=== PATIENT | male | born 1960 | race Caucasian/White ===

== ENCOUNTER 2024-05-21 19:19 | Emergency (ER) | payer SELFPAY ==
[2024-05-21] VITALS (7 sets, daily range): BP systolic 122–155; BP diastolic 73–96; PULSE 53–68; RESP 16; TEMP 36.5; O2SAT 97–100; BMI 25.8
--- NOTE | 2024-05-21 19:34 | ED_ITS ---
HPI - Animal Bite 2 General: Chief Complaint: Animal Bite Stated Complaint: Snake bite Time Seen by Provider: 05/21/24 19:27 Source: patient Mode of arrival: ambulatory Limitations: no limitations History of Present Illness: 63-year-old male states he is bit on his right hand by a copperhead roughly an hour ago is over his right second knuckle he denies any pain currently is minimal swelling. His last tetanus was 1 month ago denies any other injuries Associated symptoms: Deny chills or fever(s) Related Data Allergies Allergy/AdvReac Type Severity Reaction Status Date / Time No Known Allergies Allergy Verified 05/21/24 19:27 Review of Systems 2 Const: Denies: fever(s) or chills ENMT: Denies: throat pain or dental pain Card: Denies: chest pain Resp: Denies: dyspnea GI: Denies: abdominal pain, nausea, vomiting or diarrhea Musc: Denies: neck pain or back pain Skin/Breast: Denies: rash Physical Exam 2 Const: COMMON NORMALS: no acute distress, patient oriented x3 and healthy appearing HENMT: COMMON NORMALS: normocephalic and atraumatic HEAD & SCALP: n ormocephalic and atraumatic Neck/C-Spine: COMMON NORMALS: full ROM and supple Chest: COMMONS NORMALS: normal inspection of the chest Resp: COMMON NORMALS: normal respiratory effort Extremity: COMMON NORMALS: full ROM NARRATIVE EXTREMITY EXAM: Puncture wound noted over right dorsum hand at the second knuckle minimal swelling at this time Neuro: COMMON NORMALS: patient oriented x3, moves all extremities and no focal motor deficits Psych: COMMON NORMALS: mental status grossly normal, Normal thought process present and cooperative THOUGHT PROCESS: Normal thought process present Skin: COMMON NORMALS: no rashes or lesions noted and no wounds GENERAL SKIN EXAM: no rashes or lesions noted Course 2 Vital Signs: Vital signs: Vital Signs Temperature 97.7 F 05/21/24 19:25 Pulse Rate 68 05/21/24 19:25 Respiratory Rate 16 05/21/24 19:25 Blood Pressure 155/96 05/21/24 19:25 Pulse Oximetry 98 05/21/24 19:25 Oxygen Delivery Me thod Room Air 05/21/24 19:25 MDM - Animal Bite Medical Decision Making Patient presents here with a snake bite he has had no further swelling in his hand no pain at this time he is wanting go home I feel he stable for discharge she is to rest follow-up with PCP return if worsening understands agrees to plan Medical Records I reviewed the patient's medical records. Lab Data I reviewed the patient's lab results. 05/21/24 19:45 05/21/24 19:45 Laboratory Results WBC 4.23 10^3/uL (3.29-11.43) 05/21/24 19:45 RBC 4.71 10^6/uL (3.85-5.65) 05/21/24 19:45 Hgb 14.00 g/dL (11.27-16.99) 05/21/24 19:45 Hct 41.0 % (37-53) 05/21/24 19:45 MCV 87.0 fl (82-101) 05/21/24 19:45 MCH 29.7 pg (27-33) 05/21/24 19:45 MCHC 34.1 g/dL (30-55) 05/21/24 19:45 RDW 12.8 % (12.1-15.1) 05/21/24 19:45 Plt Count 193 10^3/cmm (157-399) 05/21/24 19:45 MPV 9.4 fL (7.4-10.4) 05/21/24 19:45 Neut % (Auto) 64.5 % 05/21/24 19:45 Lymph % (Auto) 25.1 % 05/21/24 19:45 [place] % (Auto) 7.6 % 05/21/24 19:45 Eos % (Auto) 2.1 % 05/21/24 19:45 Baso % (Auto) 0.5 % 05/21/24 19:45 Neut # (Auto) 2.73 10^3/uL (1.8-7.7) 05/21/24 19:45 Lymph # (Auto) 1.1 10^3/uL (0.8-4.8) 05/21/24 19:45 [place] # (Auto) 0.3 10^3/uL (0.2-0.9) 05/21/24 19:45 Eos # (Auto) 0.1 10^3/uL (0.0-0.8) 05/21/24 19:45 Baso # (Auto) 0.0 10^3/uL (0.0-0.1) 05/21/24 19:45 Nucleated RBC % (auto) 0 % 05/21/24 19:45 Nucleated RBCs # 0.0 /100WBC 05/21/24 19:45 PT 12.80 SECONDS (12.1-14.9) 05/21/24 19:45 INR 0.94 (0.8-1.2) 05/21/24 19:45 Sodium 144 mmol/L (136-145) 05/21/24 19:45 Potassium 4.6 mmol/L (3.5-5.1) 05/21/24 19:45 Chloride 108 mmol/L (98-107) H 05/21/24 19:45 Carbon Dioxide 25 mmol/L (22-29) 05/21/24 19:45 Anion Gap 15.6 (5-19) 05/21/24 19:45 BUN 9 mg/dL (8-23) 05/21/24 19:45 Creatinine 0.8 mg/dL (0.7-1.2) 05/21/24 19:45 GFR Calculation 97.6 mL/min (90-130) 05/21/24 19:45 Glucose 103 mg/dL (65-115) 05/21/24 19:45 Calculated Osmolality 297 mOsm/kg (285-295) H 05/21/24 19:45 Calcium 9.2 mg/dL (8.5-10.5) 05/21/24 19:45 Total Bilirubin 0.3 mg/dL (0.15-1.2) 05/21/24 19:45 AST 18 U/L (0-40) 05/21/24 19:45 ALT 11 U/L (0-41) 05/21/24 19:45 Alkaline Phosphatase 73 U/L (40-130) 05/21/24 19:45 Total Protein 7.2 g/dL (6.6-8.7) 05/21/24 19:45 Albumin 4.4 g/dL (3.5-5.2) 05/21/24 19:45 Globulin 2.8 g/dL (1.3-4.6) 05/21/24 19:45 No radiology studies performed this visit Discharge Plan Discharge Patient Disposition: Home Clinical Impression: Snake bite Condition: Stable Discharge Orders: Discharge ED (Routine); Ordered 05/21/24 Ordered By: Vicky Fenton Discharge Diet: Advance as tolerated Discharge Activity: Resume usual activity Patient Instructions: Snake Bite (ED) Coding Level of Care Code ED Retail Assistant for Jennifer Huff
[2024-05-21 19:52] LABS: Basophils % 0.5 %; Eosinophils # 0.1 10^3/uL (0.0-0.8); Eosinophils % 2.1 %; Lymphocytes # 1.1 10^3/uL (0.8-4.8); Lymphocytes % 25.1 %; Mean Corpuscular HGB Conc 34.1 g/dL (30-55); Mean Corpuscular Hemoglobin 29.7 pg (27-33); Mean Platelet Volume 9.4 fL (7.4-10.4); Monocytes # 0.3 10^3/uL (0.2-0.9); Monocytes % 7.6 %; Neutrophils # 2.73 10^3/uL (1.8-7.7); Neutrophils % 64.5 %; Nucleated Red Blood Cells % 0 %; Platelet Count 193 10^3/cmm (157-399); Red Blood Count 4.71 10^6/uL (3.85-5.65); Red Cell Distribution Width 12.8 % (12.1-15.1); White Blood Count 4.23 10^3/uL (3.29-11.43)
[2024-05-21 20:05] LABS: INR 0.94 (0.8-1.2)
[2024-05-21 20:10] LABS: Alanine Aminotransferase 11 U/L (0-41); Albumin Level 4.4 g/dL (3.5-5.2); Alkaline Phosphatase 73 U/L (40-130); Anion Gap 15.6 (5-19); Aspartate Amino Transferase 18 U/L (0-40); Blood Urea Nitrogen 9 mg/dL (8-23); Calcium 9.2 mg/dL (8.5-10.5); Carbon Dioxide 25 mmol/L (22-29); Chloride 108 mmol/L (98-107); Creatinine Clr Calc Pharmacy 96.0955; Globulin 2.8 g/dL (1.3-4.6); Glomerular Filtration Rate 97.6 mL/min (90-130); Glucose 103 mg/dL (65-115); Osmolality Calculated 297 mOsm/kg (285-295); Potassium 4.6 mmol/L (3.5-5.1); Sodium 144 mmol/L (136-145); Total Bilirubin 0.3 mg/dL (0.15-1.2); Total Protein 7.2 g/dL (6.6-8.7)
--- NOTE | 2024-05-21 20:49 | PC.NURSE ---
PT SITTING IN CHAIR, VISITOR IN ROOM, PT DENIES NEEDS AT THIS TIME. SWELLING INCREASED INTO WRIST. NO ACUTE DISTRESS NOTED.
== END 2024-05-21 22:41 | disposition home or self-care (01) ==
PROVIDERS: Emergency Provider Emergency Medicine
DX: T63.091A Toxic effect of venom of other snake, accidental (unintentional), initial encounter (principal)
CPT/HCPCS: 36415; 80053; 85025; 85610; 99283